=== PATIENT | female | born 1975 | race Caucasian/White ===

== ENCOUNTER 2021-07-22 10:41 | Outpatient (CLI) | payer BC, SELFPAY ==
--- NOTE | ~2021-07-22 | CT_ITS ---
EXAMINATION: CT humerus RT w con DATE: 07/22/2021 11:28 INDICATION: Right upper arm lump. TECHNIQUE: Computed tomography (CT) of the right humerus was performed with 100 mL Omnipaque 350 intr avenous contrast. Automated exposure control and iterative reconstruction technique were employed. Th e dose-length product was 996.77 mGy-cm. COMPARISON: Right shoulder radiographs 04/26/2015 FINDINGS: Bone alignment is normal. No fracture. There is mild osteoarthritis of glenohumeral joint a nd severe osteoarthritis of acromioclavicular joint. There is a 2.3 x 1.5 x 3.6 cm lipoma in right bi ceps muscle. A skin marker overlies this area. IMPRESSION: 1. Lipoma in right biceps muscle. Reviewed, dictated and finalized at location A. [employer]
== END 2021-07-22 10:42 | disposition home or self-care (01) ==
PROVIDERS: PCP Physician Assistant; Visit Provider Physician Assistant
DX: R22.31 Localized swelling, mass and lump, right upper limb (principal)
CPT/HCPCS: 73201; Q9967